=== PATIENT | male | born 1985 | race Caucasian/White ===

== ENCOUNTER 2017-08-16 11:16 | Emergency (ER) | payer OTHER, BC ==
--- NOTE | 2017-08-16 11:39 | EDM.PDOC ---
ED HPI GENERAL MEDICAL PROBLEM - General Chief Complaint: Laceration Stated Complaint: CUT TO LEFT HAND Time Seen by Provider: 08/16/17 11:25 Source of Information: Reports: Patient History Limitations: Reports: No Limitations - History of Present Illness INITIAL COMMENTS - FREE TEXT/NARRATIVE: Pt. states that he sustained a laceration to the R hand while opening a can. He states that his tentanus is UTD. Pt. was told to come to the ER for evaluation as it is a work-related injury. Onset: Today Location: Reports: Lower Extremity, Right Review of Systems - Review of Systems Review Of Systems: See Below Constitutional: Reports: No Symptoms Eyes: Reports: No Symptoms Ears: Reports: No Symptoms Nose: Reports: No Symptoms Mouth/Throat: Reports: No Symptoms Respiratory: Reports: No Symptoms Cardiovascular: Reports: No Symptoms GI/Abdominal: Reports: No Symptoms Genitourinary: Reports: No Symptoms Musculoskeletal: Reports: Hand Pain (very superficial lac to palm of R hand- between 4th and 5th digit) Skin: Reports: No Symptoms Neurological: Reports: No Symptoms Psychiatric: Reports: No Symptoms ED EXAM, GENERAL - Physical Exam Exam: See Below Exam Limited By: No Limitations General Appearance: Alert, WD/WN, No Apparent Distress Extremities: Normal Inspection, Normal Range of Motion, Non-Tender, No Pedal Edema, Normal Capillary Refill, Other (superficial laceration to palm of R hand) Course - Re-Assessments/Exams Free Text/Narrative Re-Assessment/Exam: 08/16/17 11:41 The laceration is very superficial and only a small, sub-centimeter area has penetrated thru the skin. It is still very superficial and too shallow to suture. Departure - Departure Time of Disposition: 11:39 Disposition: Home, Self-Care 01 Condition: Good Clinical Impression: Laceration - Discharge Information Instructions: Laceration Care, Adult, [id number] Forms: ED Department Discharge Additional Instructions: Return to ER if redness, swelling, or discharge from the area.
== END 2017-08-16 11:35 | disposition home or self-care (01) ==
LOC: VM.ED 11:16
DX: S61.411A Laceration without foreign body of right hand, initial encounter (principal); W26.8XXA Contact with other sharp object(s), not elsewhere classified, initial encounter
CPT/HCPCS: 99281